=== PATIENT | male | born 1995 | race Caucasian/White ===

== ENCOUNTER 2017-10-19 22:07 | Emergency (ER) | payer MEDICAID ==
[~2017-10-19] VITALS: Ht 167.6 cm; Wt 79.0 kg
[2017-10-19] MEDS ORDERED: KETAMINE HCL 50 MG/ML 10ML IV ONE (23:15)
[2017-10-19] MEDS ORDERED: PROPOFOL 200MG/20ML VIAL IV ONE (23:15)
[2017-10-19] MEDS ORDERED: MORPHINE SULFATE 4 MG/ML CPJ (NOT FOR IM USE) IV ONE (23:45)
[2017-10-20 01:18] VITALS: BP 118/71
== END 2017-10-20 06:27 | disposition home or self-care (01) ==
LOC: ER 10-20 05:46
DX: S43.004A Unspecified dislocation of right shoulder joint, initial encounter (principal); J45.909 Unspecified asthma, uncomplicated; F12.10 Cannabis abuse, uncomplicated; X58.XXXA Exposure to other specified factors, initial encounter; Y93.41 Activity, dancing; Y92.89 Other specified places as the place of occurrence of the external cause; Y99.8 Other external cause status
CPT/HCPCS: 23650; 73030; 96374; 99285; J2270; J3490; 99152; J2704